=== PATIENT | male | born 1995 | race Two or more races ===

== ENCOUNTER 2017-05-13 11:32 | Emergency (ER) | payer OTHER ==
[~2017-05-13] VITALS: Ht 162.6 cm; Wt 54.4 kg
[2017-05-13 13:22] VITALS: BP 121/68
[2017-05-13] MEDS ORDERED: cefTRIAXone SOD 1,000 MG VL IM ONE (13:45)
[2017-05-13] MEDS ORDERED: ACETAMINOPHEN 500 MG TAB PO ONE (13:45)
== END 2017-05-13 14:00 | disposition home or self-care (01) ==
LOC: ER 11:32
DX: J20.9 Acute bronchitis, unspecified (principal); J45.909 Unspecified asthma, uncomplicated; J02.9 Acute pharyngitis, unspecified
CPT/HCPCS: 96372; 99283; J0696